=== PATIENT | male | born 1985 | race Caucasian/White ===

== ENCOUNTER 2022-10-17 17:55 | Emergency (ER) | payer OTHER ==
[~2022-10-17] VITALS: Ht 188 cm; Wt 88.1 kg
[2022-10-17 17:56] VITALS: TEMP 98.2
[2022-10-17] MEDS ORDERED: BUPR1SUB5 SL (18:24)
[2022-10-17 21:14] VITALS: BP 132/84; O2SAT 98
[2022-10-17] MEDS ORDERED: BUPRENORPHINE/NALOXONE 8-2MG SUBLINGUAL TABLET(SUBOXONE) SL STA (21:27)
== END 2022-10-17 21:58 | disposition home or self-care (01) ==
LOC: M ED 17:55
DX: F19.230 Other psychoactive substance dependence with withdrawal, uncomplicated (principal); Z79.899 Other long term (current) drug therapy